=== PATIENT | male | born 1960 | race Caucasian/White ===

== ENCOUNTER 2017-08-12 05:36 | Outpatient (CLI) | payer BC ==
[~2017-08-12] VITALS: Ht 180.3 cm; Wt 88.6 kg
[2017-08-12 06:21] VITALS: Ht 180.3 cm; Wt 88.6 kg
[2017-08-12 06:44] LABS: APTT 24.2 SECONDS (22.8-39.4); INR 0.96 (0.85-1.17); PROTIME 12.3 SECONDS (11.6-15.0)
[2017-08-12 06:48] LABS: HEMOGLOBIN 14.7 g/dL (13.5-17.5); MCH 32.4 pg (26.0-34.0); MCHC 34.2 g/dL (31.0-37.0); MCV 94.7 fL (80.0-100.0); MEAN PLATELET VOLUME 9.5 fL (7.4-10.4); PLATELET COUNT 175 10x3/uL (130-400); RBC 4.54 10x6/uL (4.20-6.10); RDW 13.4 % (11.5-14.5); WBC 41.4 10x3/uL (4.8-10.8)
[2017-08-12 06:57] LABS: CALC OSMOLALITY 278 mosm/kg (275-300); CALCIUM 8.9 mg/dL (8.5-10.1); CARBON DIOXIDE 25.9 mmol/L (21.0-32.0); CHLORIDE - SERUM 104 mmol/L (98-107); GLUCOSE 89 mg/dL (74-106); SODIUM 140 mmol/L (136-145); UREA NITROGEN 16 mg/dL (7-18); eGFR NON AFRICAN AMERICAN 82 mL/min (90-120)
[2017-08-12 07:48] LABS: EOSINOPHILS 1 % (0-7); LYMPHOCYTES 64 % (15-50); MONOCYTES 4 % (2-11); NEUTROPHILS 16 % (40-80); PLATELET ESTIMATE NORMAL
== END 2017-08-12 11:57 | disposition home or self-care (01) ==
LOC: D.SP 05:36 → D.CT 08:00 → D.SP 08:00
PROVIDERS: Specialist
DX: D72.829 Elevated white blood cell count, unspecified (principal); D72.820 Lymphocytosis (symptomatic); Z01.812 Encounter for preprocedural laboratory examination